=== PATIENT | female | born 1935 | race African-American/Black ===

== ENCOUNTER 2019-08-01 18:17 | Emergency (ER) | payer MEDICARE, BC ==
[2019-08-01 18:29] VITALS: BP 163/78
--- NOTE | 2019-08-01 18:29 | UC ---
Neck Pain HPI - HPI Summary HPI Summary: 84 year old female with h/o T2DM and HTN present with complaint of neck pain and stiffness that started 3 days ago upon awakening in the morning. She denies any fall nor injury. Denies associated headache nor fever. No radicular pain. She states she has a h/o PUD and is unable to take NSAID's. - History of Current Complaint Chief Complaint: UCUpperExtremity Stated Complaint: NECK PAIN Time Seen by Provider: 08/01/19 18:23 Hx Obtained From: Patient Onset/Duration Of Injury/Symptoms: Days - two Mechanism Of Injury: No Known Trauma Aggravating Factors: Movement Alleviating Factors: Nothing Associated Signs & Symptoms: Negative: Swelling, Fever, Weakness, Headache, Paresthesia - Allergies/Home Medications Allergies/Adverse Reactions: Allergies Allergy/AdvReac Type Severity Reaction Status Date / Time No Known Allergies Allergy Verified 08/01/19 18:29 Home Medications: Home Medications Acetaminophen [APAP] 650 mg PO ONCE 08/01/19 [History Confirmed 08/01/19] Cyanocobalamin (Vitamin B-12) [Vitamin B-12] 5,000 mcg SL DAILY 08/01/19 [ History Confirmed 08/01/19] Iron,Carb/Vit C/Vit B12/Folic [Iron 100 Plus] 1 tab PO DAILY 08/01/19 [History Confirmed 08/01/19] Meclizine TAB* [Antivert 12.5 TAB*] 12.5 mg PO TID PRN 08/01/19 [History Confirmed 08/01/19] Ondansetron HCl [Zofran 4 MG TAB] 4 mg PO 08/01/19 [History] Rosuvastatin (NF) [Crestor] 20 mg PO DAILY 08/01/19 [History Confirmed 08/01/19] PMH/Surg Hx/FS Hx/Imm Hx Previously Healthy: Yes Endocrine History: Diabetes Cardiovascular History: Hypertension GI/ History: Ulcer - Surgical History Surgical History: Yes - h/o left carotid endarterecomy. Surgery Procedure, Year, and Place: L carotid artery cleaned - Family History Known Family History: Positive: Non-Contributory - Social History Lives: Alone Alcohol Use: None Substance Use Type: None Smoking Status (MU): Former Smoker Review of Systems All Other Systems Reviewed And Are Negative: Yes Constitutional: Negative: Fever, Chills, Fatigue Skin: Negative: Rash, Bruising Eyes: Positive: Negative ENT: Negative: Sore Throat, Ear Ache Respiratory: Negative: Shortness Of Breath, Cough Cardiovascular: Negative: Palpitations, Chest Pain Gastrointestinal: Positive: Other - decreased appetite today. Negative: Abdominal Pain, Vomiting, Diarrhea, Nausea Genitourinary: Positive: Negative Motor: Negative: Decreased ROM, Weakness Neurovascular: Negative: Decreased Sensation Musculoskeletal: Positive: Other: - cervical pain and stiffness Neurological/Mental Status: Negative: Headache, Weakness, Paresthesia, Numbness Psychological: Positive: Negative Is Patient Immunocompromised?: No Physical Exam Triage Information Reviewed: Yes Appearance: Well-Appearing, Pain Distress - when she moves her neck in any direction Vital Signs Reviewed: Yes Eye Exam: Normal ENT: Positive: Pharynx normal, TMs normal, Uvula midline Neck: Positive: Supple, No Lymphadenopathy, Tenderness @ - left trapezius muscle to palpation., Other: - no carotid bruits. Respiratory: Positive: Chest non-tender, Lungs clear, Normal breath sounds, No respiratory distress. Negative: Crackles, Rhonchi, Wheezing Cardiovascular: Positive: RRR, No Murmur Abdomen Description: Positive: Nontender, Soft Musculoskeletal: Positive: ROM Limited @ - cervical spine with rotation, flexion and extension Neurological: Positive: Muscle Tone Normal. Negative: Lethargic Psychological Exam: Normal Skin Exam: Normal Neck Pain Course/Dx - Course Course Of Treatment: Patient with recent upper and lower endoscopies that showed PUD. She was instructed to take Tylenol only for pain along with heat and muscle rub. She is not a good candidate for muscle relaxer as due to her age and lives alone. Exam was unremarkable other than neck stiffness. - Differential Dx/Diagnosis Provider Diagnosis: Cervical strain, acute Discharge ED - Sign-Out/Discharge Documenting (check all that apply): Patient Departure All imaging exams completed and their final reports reviewed: No Studies - Discharge Plan Condition: Stable Disposition: HOME Patient Education Materials: Cervical Strain (ED) Referrals: Steff Moss MD [Primary Care Provider] - Additional Instructions: Take Tylenol every 6 hours as needed for pain. Apply heat and muscle rub to the neck and upper back muscles. De range of motion exercises with your neck. If your symptoms persist follow-up with your Primary Care physician. If you note sudden worsening of your symptoms or severe pain, proceed to the Emergency Department for further evaluation. - Billing Disposition and Condition Condition: STABLE Disposition: Home
== END 2019-08-01 19:09 | disposition home or self-care (01) ==
LOC: UCCORT 18:17
DX: S16.1XXA Strain of muscle, fascia and tendon at neck level, initial encounter (principal); E11.9 Type 2 diabetes mellitus without complications; I10 Essential (primary) hypertension; Z79.899 Other long term (current) drug therapy; Z87.891 Personal history of nicotine dependence; X58.XXXA Exposure to other specified factors, initial encounter; Y92.9 Unspecified place or not applicable
CPT/HCPCS: 99211; G0463